=== PATIENT | female | born 1955 | race Caucasian/White ===

== ENCOUNTER → 2021-11-28 13:03 | Outpatient (CLI) | payer MEDICARE, SELFPAY ==
--- NOTE | 2021-11-28 | DI.MRI.S_ITS ---
PROCEDURE: MR FOOT LT WO/W CON INDICATIONS: MASS OF LESSER TOE OF LEFT FOOT TECHNIQUE: Noncontrast coronal T1 spin echo and STIR, sagittal T1 spin echo with fat saturation and STIR, axial T1 spin echo and T2 fast spin echo with fat saturation. After the administration of contrast, axial/sagittal/coronal T1 spin echo with fat saturation through the left foot. COMPARISON: [facility] Outside Film, MR, MR FOOT LEFT WITH/WITHOUT CONTRAST, 05/28/2021, 9:30. FINDINGS: Image quality: Excellent. Bones: The visualized bone marrow demonstrates normal signal on all sequences. The overlying cortex appears intact. No abnormal intraosseous enhancement. Soft tissues: Previously described T1 hypointense and T2 isointense to hyperintense and solid appearing mass involving plantar aspect of 3rd toe soft tissue at the level of middle phalanx is again seen, currently measures approximately 8 x 9 x 4 mm in size series 5, image 19 and series 7, image 22. This was previously measured at 1.3 x 1.1 x 0.6 cm in size. The lesion is closely associated with adjacent flexor tendon of the 3rd toe at this level. Contrast enhancement is again seen within this lesion. No new enhancing soft tissue mass is seen. The scanned muscles demonstrate normal overall bulk and internal signal. IMPRESSION: 1. Patient's known solid-appearing oval mass at plantar aspect of 3rd toe adjacent or involving the 3rd digit flexor tendon appears smaller in size on the current study and measures approximately 8 x 9 x 4 mm. There is suggestion of mild contrast enhancement. Finding likely represent a benign process such as giant cell tumor of the tendon sheath versus fibroma. Soft tissue sarcoma is much less likely . 2. No new soft tissue mass or fluid collection is seen. 3. No marrow signal abnormality . No fracture or dislocation. No suspicious intraosseous lesion or abnormal intraosseous enhancement. Dictated by: Amando Marie M.D. on 11/28/2021 at 16:21 Approved by: Amando Marie M.D. on 11/28/2021 at 16:37
== END ==
PROVIDERS: PCP Family Medicine; Referring Provider Orthopaedic Surgery Foot and Ankle Surgery; Visit Provider Orthopaedic Surgery Foot and Ankle Surgery
DX: R22.42 Localized swelling, mass and lump, left lower limb (principal)
CPT/HCPCS: 73720

== ENCOUNTER → 2022-10-15 09:47 | Outpatient (CLI) | payer OTHER, SELFPAY ==
--- NOTE | 2022-10-15 09:49 | DI.NM.S_ITS ---
PROCEDURE: NM DARREL PERF SPECT R&S PHARM Rest and pharmacological stress myocardial perfusion SPECT with gated imaging and ejection fraction RADIOPHARMACEUTICAL: 12.7 mCi Tc-99m tetrafosmin IV at rest and 24.9 mCi Tc-99m tetrafosmin IV at peak effect of pharmacological stress. A 3-moi-ocfyhmzh was performed. INDICATIONS: Dyspnea on exertion TECHNIQUE: Radiopharmaceutical was injected at peak stress test, and also at rest. SPECT images were obtained. SPECT myocardial perfusion images were displayed in short axis, horizontal long axis, and vertical long axis views. Gated images were reviewed using [employer] software. COMPARISON: None. CARDIAC STRESS: A pharmacologic stress test was performed under the supervision of an attending staff, using an infusion of regadenoson 0.4 mg IV. Hemodynamic data: There is normal blood pressure and heart rate response to pharmacologic stress. Symptoms: The patient denied anginal chest pain. EKG: No diagnostic changes of ischemia; no ectopy. FINDINGS: Raw data: There is good myocardial uptake of radiotracer. No significant motion artifacts. Wysm-ch-ewrwl ratio is 0.33 (normal is less than 0.38 for tetrafosmin tracer). Left ventricle function: Gated images demonstrate normal left ventricular wall thickening. No segmental wall motion abnormalities. No transient ischemic dilation; TID is 0.93 (normal less than 1.3). Left ventricle resting end diastolic volume is 65 mL. Left ventricle stress ejection fraction is > 75%; normal range is above 45%. Myocardial perfusion: There is a medium size, mild intensity mid to distal inferolateral wall defect that is better in the stress supine images compared to rest. IMPRESSION: Low risk study. The mid to distal inferolateral wall defect is fixed however appears better in the stress supine images compared to rest and is likely due to artifact rather than scar. Unfortunately, no prone images were obtained. Hyperdynamic LV function with normal wall motion. Dictated by: Hilda Zamudio D.O. on 10/15/2022 at 16:36 Approved by: Hilda Zamudio D.O. on 10/15/2022 at 16:40
== END ==
PROVIDERS: PCP Family Medicine; Referring Provider Internal Medicine Cardiovascular Disease; Visit Provider Internal Medicine Cardiovascular Disease
DX: R06.09 Other forms of dyspnea (principal)
CPT/HCPCS: 78452; 93017; A9502; J2785

== ENCOUNTER → 2024-04-19 10:22 | Outpatient (CLI) | payer MEDICARE, SELFPAY ==
--- NOTE | 2024-04-19 10:25 | DI.ECHO.S_ITS ---
[facility] : : [id number] : [place] : : [id number] : : Phone: [phone] Echocardiogram Report + + :Name: DYANA WHALEY Study Date: 04/19/2024 Height: 67 in : :[facility] ReadingLocation: Weight: 198 lb : : Gender: Female BSA: 2.0 m2 : :: 1955 Age: 69 yrs BP: 106/79 mmHg: :Reason For Study: DYPSNEA ON EXERTION : :Ordering Physician: KATTY, : :ASHLEE Performed By: Romie Johnson : :Referring: ASHLEE BHAGAT : + + Interpretation Summary 1) Mildly increased left ventricular thickness (concentric) with nornal size, normal wall motion, and normal systolic function (EF 55-60%). 2) Normal right ventricular size and function. 3) No significant valvular abnormalities. 4) The right ventricular systolic pressure is estimated to be at least 33 mmHg based on an estimated right atrial pressure of 3 mm Hg. 5) Compared to the Echo done 09/03/2022, no significant change. Procedure: A two-dimensional transthoracic echocardiogram with color flow and Doppler was performed. The study quality was technically adequate. There is no prior echocardiogram noted for this patient. The patient was in normal sinus rhythm during the exam. Left Ventricle: The left ventricle is normal in size. There is mild concentric left ventricular hypertrophy. There is no ventricular septal defect visualized. The ejection fraction is estimated to be 55-60%. Left ventricular systolic function appears normal without focal wall motion abnormalities. Diastolic parameters suggest a relaxation abnormality of the left ventricle, consistent with probable normal filling pressures. Right Ventricle: The right ventricle is normal in size and function. Atria: The left atrial size is normal. Right atrial size is normal. There is no Doppler evidence for an atrial septal defect. Mitral Valve: The mitral valve is normal in structure and function. There is no mitral regurgitation noted. Aortic Valve: The aortic valve is grossly normal. There is no aortic valve stenosis. No aortic regurgitation is present. Tricuspid Valve: The tricuspid valve is normal in structure and function. There is trace tricuspid regurgitation. The right ventricular systolic pressure is estimated to be at least 33 mmHg based on an estimated right atrial pressure of 3 mm Hg. Pulmonic Valve: The pulmonic valve is normal in structure and function. There is no pulmonic valvular regurgitation. Great Vessels: The aortic root is normal size. The dimensions of the ascending aorta are normal. The pulmonary artery is normal size. The IVC is of normal diameter and collapses greater than 50% with a sniff. This suggests a low right atrial pressure of 3 mm Hg. Pericardium/ Pleura There is no pericardial effusion. There is no pleural effusion. MMode/2D Measurements & Calculations LVIDd: 3.8 cm LVOT diam: 1.9 cm LVIDs: 2.6 cm Ao root diam: 2.9 cm FS: 31.7 % asc Aorta Diam: 3.0 cm EPSS: 0.53 cm Ao Arch Diam (Prox Trans): 2.0 cm IVSd: 1.1 cm LVPWd: 1.1 cm LV long. diameter/BSA (cm/m^2): 1.9 LV sys. diameter/BSA (cm/m^2): 1.3 LA A2 area: 18.4 cm2 RA long axis: 4.1 cm LA A4 area: 12.9 cm2 RA area: 13.2 cm2 LA length (vol): 4.7 cm RA vol: 36.5 ml LA vol: 43.0 ml RA : 18.1 ml/m2 LA vol index: 21.3 ml/m2 IVC diam: 1.2 cm RVD1 (basal): 3.5 cm RVD2 (mid): 2.6 cm TAPSE: 2.0 cm Doppler Measurements & Calculations Ao V2 max: 142.2 cm/sec LVOT Max Pipe: 106.1 cm/sec Ao V2 mean: 99.6 cm/sec LV V1 max P.5 mmHg Ao max P.1 mmHg LV V1 VTI: 23.8 cm Ao mean P.5 mmHg MIGUE(I,D): 2.2 cm2 Ao V2 VTI: 31.1 cm MIGUE(V,D): 2.1 cm2 sev ratio: 0.76 MIGUE indexed to BSA (cm^2/m^2): 1.1 MV E max pipe: 74.4 cm/sec TR max pipe: 274.6 cm/sec MV A max pipe: 83.9 cm/sec TR max P.2 mmHg MV E/A: 0.89 PA V2 max: 72.7 cm/sec Med Peak E' Pipe: 4.9 cm/sec PA V2 mean: 49.4 cm/sec E/E' med: 15.3 PA mean P.1 mmHg Lat Peak E' Pipe: 9.0 cm/sec PA pr(Accel): 49.9 mmHg E/E' lat: 8.3 E/e' average: 11.8 MV dec time: 0.17 sec SV(LVOT): 68.1 ml Reading Physician:08:55 PM
[2024-04-19 12:47] LABS: Hematocrit 37.6 % (36-46); Hemoglobin 12.2 g/dL (12.0-16.0); Mean Corpuscular HGB Conc 32.4 % (30-36); Mean Corpuscular Hemoglobin 29.4 PG (26-34); Mean Corpuscular Volume 90.7 fL (80-100); Platelet Count 234 X10^3/uL (150-400); Red Blood Cell Count 4.14 X10^6/uL (4.0-5.2); Red Cell Distribution Width 15.7 % (11.6-14.8); White Blood Cell Count 7.2 X10^3/uL (4.5-11.0)
[2024-04-19 13:12] LABS: Blood Urea Nitrogen 20 mg/dL (7-17); Calcium 9.4 mg/dL (8.4-10.2); Carbon Dioxide 26 mmol/L (22-32); Chloride 106 mmol/L (98-107); Estimated Glomerular Filt Rate > 60 mL/min (>60); Glucose 103 mg/dL (80-110); HEMOLYSIS < 15 (0-50); Potassium 3.9 mmol/L (3.4-5.1); Sodium 141 mmol/L (137-145)
[2024-04-19 13:16] LABS: NT-proBNP (BNP-Adult 18+) 83 pg/mL (<125)
== END ==
LOC: ECHO 10:24
PROVIDERS: PCP Family Medicine; Referring Provider Internal Medicine Cardiovascular Disease; Visit Provider Internal Medicine Cardiovascular Disease
DX: I50.32 Chronic diastolic (congestive) heart failure (principal); R06.09 Other forms of dyspnea
CPT/HCPCS: 36415; 80048; 83880; 85027; 93306